=== PATIENT | male | born 1935 | race Caucasian/White ===

== ENCOUNTER 2021-06-21 10:34 | Emergency (ER) | payer MEDICARE, OTHER, SELFPAY ==
[2021-06-21 10:40] VITALS: BP 165/74; PULSE 56; RESP 14; TEMP 36.5; O2SAT 98; BMI 26.0
--- NOTE | 2021-06-21 10:44 | DI.RAD.S_ITS ---
PROCEDURE: XR FINGER LT MIN 2V INDICATIONS: large rock fell on pts finger TECHNIQUE: AP hand, 2 views of the 3rd finger(s) acquired. COMPARISON: None. FINDINGS: Bones: No fractures or dislocations. No suspicious bony lesions. Soft tissues: No suspicious soft tissue calcifications. 3rd digit soft tissue edema is present. IMPRESSION: No visualized acute fracture or dislocation. However, if clinical concern and/or pain persist, short interval imaging followup in 7-10 days is recommended, as occult injury cannot be definitively excluded. Dictated by: Mariana Elizondo M.D. on 06/21/2021 at 11:13 Approved by: Mariana Elizondo M.D. on 06/21/2021 at 11:16
--- NOTE | 2021-06-21 11:31 | PC.NURSE ---
Patient states he is building a rock wall at his house. Last week one of the rocks (large, heavy rock) slid off the pile and landed on top of patient's left hand - middle finger. Initially the injury was not painful enough to bring the patient to the ED but over the past 3-4 days the pain and swelling has been increasing substantially. The 3rd digit on left hand is very swollen, unable to bend, pain 10/10 on movement. Patient states overall health is very good and denies other signs/symptoms.
--- NOTE | 2021-06-21 11:36 | ED.GENADULT ---
HPI - General Adult General Chief complaint: Extremity Injury, Upper Stated complaint: injury to left hand middle finger Time Seen by Provider: 06/21/21 10:37 Source: patient Mode of arrival: Ambulatory Limitations: no limitations History of Present Illness HPI narrative: patient is an 86-year-old male who is here for evaluation of an injury he sustained to his left middle finger. He states that a couple days ago he smashed it while he was working with some rocks outside. He stated that he did sustain a cut to the back of his middle finger. Since that time he has had swelling and discomfort over the area. He was concerned about infection and potential fracture. No prior injuries. Related Data Previous Rx's Medication Instructions Recorded cephalexin 500 mg capsule 500 mg PO QID 7 Days #28 cap 06/21/21 Allergies Allergy/AdvReac Type Severity Reaction Status Date / Time No Known Drug Allergies Allergy Verified 06/21/21 10:45 Review of Systems Constitutional Constitutional: Denies fever(s) Musculoskeletal Musculoskeletal: Reports system reviewed and no additional complaints, except as documented and Reports as per HPI Integumentary/Breasts Skin/Breast: Reports system reviewed and no additional complaints, except as documented and Reports as per HPI Neurologic Neurologic: Reports system reviewed and no additional complaints, except as documented Hematologic/Lymphatic On Anticoagulants: No Patient History Medical History Hypertension Social History Smoking Status: Former smoker Smoking Status: Former smoker alcohol intake frequency: a few times a week Substance Use Type: does not use Exam Initial Vital Signs Initial Vital Signs: Vital Signs Temperature 97.7 F 06/21/21 10:40 Pulse Rate 56 L 06/21/21 10:40 Respiratory Rate 14 06/21/21 10:40 Blood Pressure 165/74 H 06/21/21 10:40 Pulse Oximetry 98 06/21/21 10:40 Const General: cooperative, healthy appearing and comfortable [facility] Head: normal to inspection and normocephalic Cardio Pulses: radial pulses present on the left Skin Other: patient does have a 1 cm abrasion/laceration on the dorsum of the left middle finger just proximal to the nail. The nail is not involved. There was no bleeding. Does have a small amount of serosanguineous drainage. There is some surrounding erythema. Neuro Sensory Exam: no sensory deficits noted Extrem Other: Circumferential swelling to the left middle finger. There is some redness on the dorsum the area. He does not have any tenderness along the flexor tendons. No tenderness along the MCP joint or PIP joint. Most tenderness is along the dorsum of the Middle finger along the D IP joint. Course Orders Ordered: ED Orders 06/21/21 10:44 XR finger LT min 2V Stat Vital Signs Vital signs: Vital Signs - 8 hr 06/21/21 10:40 Temperature 97.7 F Pulse Rate 56 L Respiratory Rate 14 Blood Pressure 165/74 H Pulse Oximetry 98 Medical Decision Making Imaging Data Extremity x-ray #1: Radiologist's Impression: [address] [id number] ReportSigned Patient: Sukhi Mathews JMR#: [id number]: 7Acct:[id number]/Sex: 86 / MDate of Service: 06/21/21Loc: EDAccession Number: [id number] Procedure: XR finger LT min 2V Ordering Provider: Cruz Melissa D.O. PROCEDURE: XR FINGER LT MIN 2V INDICATIONS: large rock fell on pts finger TECHNIQUE: AP hand, 2 views of the 3rd finger(s) acquired. COMPARISON: None. FINDINGS: Bones: No fractures or dislocations. No suspicious bony lesions. Soft tissues: No suspicious soft tissue calcifications. 3rd digit soft tissue edema is present. IMPRESSION: No visualized acute fracture or dislocation. However, if clinical concern and/or pain persist, short interval imaging followup in 7-10 days is recommended, as occult injury cannot be definitively excluded. Dictated by: Mariana Elizondo M.D. on 06/21/2021 at 11:13 Approved by: Mariana Elizondo M.D. on 06/21/2021 at 11:16 [facility] Narrative Medical decision making narrative: There are no fractures noted on the x-rays. There is a small skin abrasion on the back of the middle finger. because of the nature of the injury will treat him for antibiotics. No indication for orthopedic consultation today. Low suspicion for flexor tenosynovitis. Patient given return precautions. He expressed understanding and agreement. Discharge Plan Departure Patient Disposition: Home Clinical Impression: Cellulitis, Abrasion of skin Instructions: Cellulitis Activity Restrictions/Additional Instructions: due to the nature of the injury we will treat you with antibiotics. If symptoms are not improving over the next couple days you do need to contact her primary doctor for follow-up. Return to the emergency for any new worsening symptoms. Prescriptions: New cephalexin 500 mg capsule 500 mg PO QID 7 Days Qty: 28 RF: 0 Referrals: Umer Jimenez MD [Primary Care Provider] -
== END 2021-06-21 11:59 | disposition home or self-care (01) ==
PROVIDERS: Emergency Provider Emergency Medicine; Family Provider Registered Nurse; PCP Registered Nurse
DX: L03.012 Cellulitis of left finger (principal); S60.413A Abrasion of left middle finger, initial encounter; W23.0XXA Caught, crushed, jammed, or pinched between moving objects, initial encounter
CPT/HCPCS: 73140; 99283

== ENCOUNTER 2021-07-11 14:24 | Emergency (ER) | payer MEDICARE, OTHER, SELFPAY ==
[2021-07-11 14:37] VITALS: BP 155/73; PULSE 77; RESP 18; TEMP 36.5; O2SAT 97
--- NOTE | 2021-07-16 20:51 | ED.SKABFB ---
HPI - Skin/Abscess/Foreign Bdy <RALEIGH Pichardo Last Filed: 07/16/21 20:54> General Chief complaint: Skin/Abscess/Foreign Body Stated complaint: Poss infection in finger Time Seen by Provider: 07/11/21 14:43 Source: patient Mode of arrival: Ambulatory Related Data Previous Rx's Medication Instructions Recorded cephalexin 500 mg capsule 500 mg PO TID 7 Days #21 cap 07/13/21 Allergies Allergy/AdvReac Type Severity Reaction Status Date / Time No Known Drug Allergies Allergy Verified 07/13/21 09:15 Patient History <RALEIGH Pichardo Last Filed: 07/16/21 20:54> Medical History Hypertension Social History Smoking Status: Former smoker Smoking Status: Former smoker alcohol intake frequency: holidays/special occasions only Substance Use Type: does not use Exam <RALEIGH Pichardo Last Filed: 07/16/21 20:54> Initial Vital Signs Initial Vital Signs: Vital Signs Temperature 97.7 F 07/11/21 14:37 Pulse Rate 77 07/11/21 14:37 Respiratory Rate 18 07/11/21 14:37 Blood Pressure 155/73 H 07/11/21 14:37 Pulse Oximetry 97 07/11/21 14:37 <DO Tirso Mcdowell Last Filed: 07/18/21 07:07> Initial Vital Signs Initial Vital Signs: Vital Signs Temperature 97.7 F 07/11/21 14:37 Pulse Rate 77 07/11/21 14:37 Respiratory Rate 18 07/11/21 14:37 Blood Pressure 155/73 H 07/11/21 14:37 Pulse Oximetry 97 07/11/21 14:37 Discharge Plan Departure Patient Disposition: Left Against Medical Advice Clinical Impression: Patient left care setting after treatment was declined Activity Restrictions/Additional Instructions: Patient left the emergency department prior to being seen and obtaining diagnostic testing. Prescriptions: No Action cephalexin 500 mg capsule 500 mg PO TID 7 Days Qty: 21 RF: 0 Stand Alone Forms: Against Medical Advice <DO Tirso Mcdowell Last Filed: 07/18/21 07:07> Cosign ED Attending Cosignature Attestation: Dr Melissa Co-Sign Statement: I was available for consultation during this patient's emergency department visit. This chart is signed by myself for administrative purposes only. I did not have direct contact with this patient during this visit. They were seen independently by the APC.
== END 2021-07-11 15:56 | disposition left against medical advice (07) ==
PROVIDERS: Emergency Provider Student in an Organized Health Care Education/Training Program; Family Provider Registered Nurse; PCP Registered Nurse
CPT/HCPCS: 99281

== ENCOUNTER 2021-07-13 09:08 | Emergency (ER) | payer MEDICARE, OTHER, SELFPAY ==
[2021-07-13 09:12] VITALS: BP 166/81; PULSE 58; RESP 13; TEMP 36.4; O2SAT 97; BMI 24.5
--- NOTE | 2021-07-13 09:19 | PC.NURSE ---
Pt has redness,swelling and pain on left middle digit
--- NOTE | 2021-07-13 10:19 | DI.RAD.S_ITS ---
PROCEDURE: XR FINGER LT MIN 2V INDICATIONS: injury 06/21, still swollen TECHNIQUE: AP hand, 2 views of the 3rd finger(s) acquired. COMPARISON: [facility], , XR FINGER LT MIN 2V, 06/21/2021, 10:45. FINDINGS: Bones: No fractures or dislocations. Osteoarthritic changes are noted throughout left hand and wrist joints. Subtle radiolucency over radial aspect of 3rd MCP joint are seen which could represent erosion secondary to inflammatory arthropathy suggest clinical correlation. at No suspicious bony lesions. Soft tissues: No suspicious soft tissue calcifications. IMPRESSION: No evidence of 2nd finger fracture or dislocation. Questionable erosion involving radial aspect of 3rd MCP joint, suggest clinical correlation. Mild finger soft tissue swelling. 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 Dictated by: Thai Eugene M.D. on 07/13/2021 at 10:42 Approved by: Thai Eugene M.D. on 07/13/2021 at 10:50
--- NOTE | 2021-07-13 10:21 | ED.SKABFB ---
HPI - Skin/Abscess/Foreign Bdy General Chief complaint: Skin/Abscess/Foreign Body Stated complaint: Left finger infection Time Seen by Provider: 07/13/21 09:28 Source: patient Mode of arrival: Ambulatory Limitations: no limitations History of Present Illness HPI narrative: 86-year-old gentleman with an initial left middle finger injury on June 21 consisting of of [place] landing on the finger comes in complaining of continued swelling and tenderness. Initial x-ray did not show bony injury. He was placed on antibiotics for 1 week, completed these almost 2 weeks ago and did note that the drainage over the DIP dorsal surface resolved. He continues to have swelling in fullness from the PIP distally, he is unable to bend the D IP due to swelling. He states that the finger itself is not sore on the palmar surface at all. yeast tender on the dorsal surface just proximal to the nail bed if it is bumped. He has no lymphangitis spread, no fevers no recent drainage. He is concerned that it simply does not seem to be improving. Related Data Previous Rx's Medication Instructions Recorded cephalexin 500 mg capsule 500 mg PO TID 7 Days #21 cap 07/13/21 Allergies Allergy/AdvReac Type Severity Reaction Status Date / Time No Known Drug Allergies Allergy Verified 07/13/21 09:15 Review of Systems Review of Systems Narrative: Pertinent positive and negative findings as per HPI Remainder of review of systems is otherwise unremarkable for Constitutional: Fevers, chills, weakness ENT: No sore throat, neck pain, ear pain CV: Chest pain, palpitations, Respiratory: Cough, wheeze, dyspnea GI: Nausea, vomiting, diarrhea, Patient History Medical History Hypertension Social History Smoking Status: Former smoker Smoking Status: Former smoker alcohol intake frequency: holidays/special occasions only Substance Use Type: does not use Exam Narrative Exam Narrative: General: Alert appropriate in no acute distress Respiratory: Able to speak in full sentences, no obvious respiratory distress Skin: No obvious rashes, warm and dry Neurologic: Grossly intact no obvious asymmetries or abnormalities Psych: appropriate insight and affect, cooperative Extremity: Left hand, left middle finger uniformly swollen from the PIP to the tip of the finger. No specific fluctuance. Due to the swelling he is unable to bend the finger at the PIP joint but it does not appear to have significant tendon injury. Initial Vital Signs Initial Vital Signs: Vital Signs Temperature 97.6 F 07/13/21 09:12 Pulse Rate 58 L 07/13/21 09:12 Respiratory Rate 13 07/13/21 09:12 Blood Pressure 166/81 H 07/13/21 09:12 Pulse Oximetry 97 07/13/21 09:12 Course Orders Ordered: ED Orders 07/13/21 10:19 XR finger LT min 2V Stat Vital Signs Vital signs: Vital Signs - 8 hr 07/13/21 09:12 Temperature 97.6 F Pulse Rate 58 L Respiratory Rate 13 Blood Pressure 166/81 H Pulse Oximetry 97 MDM - Skin/Abscess/Foreign Bdy Imaging Data X-ray finger: Radiologist's Impression: FINDINGS: Bones: No fractures or dislocations. Osteoarthritic changes are noted throughout left hand and wrist joints. Subtle radiolucency over radial aspect of 3rd MCP joint are seen which could represent erosion secondary to inflammatory arthropathy suggest clinical correlation. at No suspicious bony lesions. Soft tissues: No suspicious soft tissue calcifications. IMPRESSION: No evidence of 2nd finger fracture or dislocation. Questionable erosion involving radial aspect of 3rd MCP joint, suggest clinical correlation. Mild finger soft tissue swelling. 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 Dictated by: Thai Eugene M.D. on 07/13/2021 at 10:42 MDM Narrative Medical decision making narrative: 86-year-old gentleman with a contusion injury to the left middle finger follow-up infection somewhat improved after antibiotics still consistently swollen and tender. Will repeat x-rays, anticipate another course of antibiotics and referral to Dr. Oh, hand air traffic control specialist as an outpatient. Discharge Plan Departure Patient Disposition: Home Clinical Impression: Crushing injury of finger of left hand Instructions: DI for Cellulitis -- Adult Activity Restrictions/Additional Instructions: Thank you for coming in today I am concerned that this finger injury does not seem to be healing completely. The x-ray today suggests that there may be some erosion over the end joint (where it is most swollen and most tender). I am going to put you on Keflex, on antibiotic, for another week but you need to follow-up with a hand warehouse specialist to see what the next steps and diagnosis and treatment will be to make sure that this heals as completely as it can Please contact Dr. Oh office to schedule an emergency department follow-up appointment as soon is he has a space available Prescriptions: New cephalexin 500 mg capsule 500 mg PO TID 7 Days Qty: 21 RF: 0 Referrals: Umer Jimenez MD [Primary Care Provider] - Frankie Oh MD [Physician] -
[2021-07-13 11:33] VITALS: BP 156/88; PULSE 54; RESP 16; O2SAT 99
== END 2021-07-13 11:34 | disposition home or self-care (01) ==
PROVIDERS: Emergency Provider Emergency Medicine; Family Provider Registered Nurse; PCP Registered Nurse
DX: S67.193A Crushing injury of left middle finger, initial encounter (principal); W23.0XXA Caught, crushed, jammed, or pinched between moving objects, initial encounter
CPT/HCPCS: 73140; 99281; 99283

== ENCOUNTER 2023-10-09 15:07 | Emergency (ER) | payer MEDICARE, OTHER, SELFPAY ==
[2023-10-09] VITALS (10 sets, daily range): BP systolic 134–158; BP diastolic 65–79; PULSE 55–85; RESP 18; TEMP 36.7; O2SAT 92–97; BMI 26.6
[2023-10-09 15:56] LABS: Add Manual Diff / Slide Review NO; Basophils Absolute Auto 0 /uL (0-100); Basophils Percent Auto 0.3 % (0-2); Eosinophils Absolute Auto 100 /uL (0-450); Hematocrit 43.4 % (41-53); Hemoglobin 14.6 g/dL (13.5-17.5); Lymphocytes Absolute Auto 500 /uL (1100-4500); Lymphocytes Percent Auto 7.6 % (25-40); Mean Corpuscular HGB Conc 33.6 % (30-36); Mean Corpuscular Hemoglobin 32.5 PG (26-34); Mean Corpuscular Volume 96.8 fL (80-100); Monocytes Absolute Auto 700 /uL (0-900); Monocytes Percent Auto 9.7 % (3-14); Neutrophils Absolute Auto 5700 /uL (1500-7000); Neutrophils Percent Auto 81.4 % (50-75); Platelet Count 121 X10^3/uL (150-400); Red Blood Cell Count 4.49 X10^6/uL (4.5-5.9); Red Cell Distribution Width 13.4 % (11.6-14.8); White Blood Cell Count 6.9 X10^3/uL (4.5-11.0)
[2023-10-09 16:05] LABS: Alanine Aminotransferase 20 IU/L (<50); Albumin 3.9 g/dL (3.5-5.0); Albumin Globulin Ratio 1.2 (1.0-2.8); Alkaline Phosphatase 66 U/L (38-126); Aspartate Aminotransferase 32 IU/L (17-59); BUN Creatinine Ratio 29.4 (6-22); Bilirubin Total 1.3 mg/dL (0.2-1.3); Blood Urea Nitrogen 25 mg/dL (9-20); Calcium 9.4 mg/dL (8.4-10.2); Carbon Dioxide 23 mmol/L (22-32); Chloride 102 mmol/L (98-107); Estimated Glomerular Filt Rate > 60 mL/min (>60); Globulin 3.3 g/dL (1.7-4.1); Glucose 99 mg/dL (80-110); HEMOLYSIS < 15 (0-50); Lipase 62 U/L (23-300); Potassium 4.2 mmol/L (3.4-5.1); Sodium 138 mmol/L (137-145); Total Protein 7.2 g/dL (6.3-8.2)
--- NOTE | 2023-10-09 17:58 | DI.CT.S_ITS ---
PROCEDURE: CT ABDOMEN PELVIS W CON INDICATIONS: midepigastric abd pain x1 wk TECHNIQUE: After the administration of intravenous contrast, axial sections acquired from the lung bases to the pubic symphysis. Coronal and sagittal reformats were performed. For radiation dose reduction, the following was used: automated exposure control, adjustment of mA and/or kV according to patient size. COMPARISON: None. FINDINGS: Image quality: Mild areas of consolidation can be seen dependently at the lung bases, with mild apparent fibrotic change. Advanced triple vessel coronary artery calcification can be seen. Lower Chest: No significant findings. ABDOMEN: Liver: No solid mass. Gallbladder: A layering gallstone can be seen within the gallbladder. No additional CT findings of cholecystitis are seen. Biliary ducts: No biliary dilation. Pancreas: No ductal dilation. Spleen: Size is within normal limits. A likely cyst can be seen along the medial aspect of the spleen, measuring 2 cm. Adrenal Glands: No adrenal nodules. Kidneys and Ureters: No hydronephrosis. No solid mass. No complex renal cystic lesion which requires follow up. There is a nonobstructing right-sided kidney stone superiorly measuring 3 mm, as on series 2, image 35. Within the left kidney, there is a nonobstructing 3 mm stone, as on series 2, image 42. Stomach and Bowel: The cecum is high-riding in this patient. No cecal volvulus is seen. No appendix (either normal or abnormal) is identified on this study. No focal right lower quadrant inflammatory change is seen. No dilated loops of small bowel can be seen. No significant colonic abnormality is seen. The stomach is decompressed at the time of this study, limiting its evaluation. Peritoneum: No abnormal intraperitoneal fluid. No free air. A focus of calcification can be seen involving the right upper quadrant peritoneal cavity, as on series 2, image 32. Additional peritoneal calcifications can be seen just to the left of the midline on series 2, image 40 as well as on the left side on series 2, image 41. Ventral Wall: No hernia. Abdominal Nodes: No retroperitoneal or mesenteric adenopathy by size criteria. Vessels: Aorta and inferior vena cava are normal in size. Atherosclerotic calcification is noted. PELVIS: Pelvic Organs: Prior prostatectomy change can be seen, with pelvic clips. Bladder: Unremarkable. Pelvic Nodes: No enlarged lymph nodes. Miscellaneous: No inguinal hernias are seen. Bones: No aggressive osseous abnormality. Degenerative changes are seen throughout, which are worst involving the lower lumbar spine. Mild dextroconvex scoliotic curvature is seen. IMPRESSION: No imaging explanation is found for this patient's presenting symptoms. No appendix (either normal or abnormal) is identified on this study. Within the lung bases, there are mild areas of consolidation, with apparent fibrosis. Although nonspecific, please consider aspiration in a patient of this age. Focal areas of peritoneal calcification can be seen, which have a benign appearance. Please correlate with prior injury. Additional findings: Advanced triple-vessel coronary artery calcification Gallstone Splenic cyst Nonobstructing bilateral kidney stones. Focal lower lumbar spine degenerative change Prostatectomy Dictated by: Fabricio Prajapati M.D. on 10/09/2023 at 17:23 Approved by: Fabricio Prajapati M.D. on 10/09/2023 at 17:30
--- NOTE | 2023-10-09 17:58 | ED.ABDPAIN ---
HPI - Abdominal Pain General Chief Complaint: Abdominal Pain Stated Complaint: low abdominal pain, cognitive changes and confusio Time Seen by Provider: 10/09/23 17:44 Source: patient Mode of arrival: Wheelchair History of Present Illness HPI narrative: 88-year-old male presents by private vehicle from home for 2-3 days of midepigastric abdominal burning that he feels when he lays down on his stomach. Triage note reports disorientation, however both patient and his at bedside deny this. Patient does have difficulty describing his symptoms but repeatedly points to the midepigastric region. Denies nausea or vomiting, constipation, urinary frequency. Patient was initially seen at the walk-in clinic where urinalysis was unremarkable and he was referred to the ER for additional evaluation. Related Data Home Medications Medication Instructions Recorded Confirmed acetaminophen 500 mg capsule 500 mg PO Q6H PRN 10/09/23 10/09/23 aspirin 81 mg tablet,delayed 81 mg PO DAILY 10/09/23 10/09/23 release atorvastatin 10 mg tablet 10 mg PO BEDTIME 10/09/23 10/09/23 celecoxib 200 mg capsule 200 mg PO DAILY 10/09/23 10/09/23 losartan 100 mg tablet 100 mg PO DAILY 10/09/23 10/09/23 omeprazole 20 mg capsule,delayed 20 mg PO DAILY 10/09/23 10/09/23 release oxybutynin chloride 5 mg tablet 5 mg PO DAILY 10/09/23 10/09/23 pregabalin 150 mg capsule 150 mg PO DAILY 10/09/23 10/09/23 Previous Rx's Medication Instructions Recorded famotidine 20 mg tablet (Pepcid) 20 mg PO BEDTIME #14 tabs 10/09/23 sucralfate 1 gram tablet (Carafate) 1 g PO QAC #30 tabs 10/09/23 Allergies Allergy/AdvReac Type Severity Reaction Status Date / Time No Known Drug Allergies Allergy Verified 10/09/23 14:45 Review of Systems Review of Systems Narrative: Negative except as noted above Patient History Medical History Hypertension Social History Smoking Status: Former smoker Smoking Status: Former smoker alcohol intake frequency: holidays/special occasions only Substance Use Type: does not use Exam Initial Vital Signs Initial Vital Signs: Vital Signs Temperature 98.1 F 10/09/23 15:10 Pulse Rate 78 10/09/23 15:10 Respiratory Rate 18 10/09/23 15:10 Blood Pressure 141/74 H 10/09/23 15:10 Pulse Oximetry 96 10/09/23 15:10 Oxygen Delivery Method Room Air 10/09/23 15:10 Const: Awake, alert, no acute distress, nontoxic appearing Cardiac: regular rate, regular rhythm RESP: unlabored, clear bilaterally, no wheezing GI: Atraumatic, soft, nontender, nondistended, no rebound, no guarding Skin: Warm, Dry, intact, no rashes Neuro: AO x3, CN II-XII grossly intact, moves all extremities Psych: Appropriate for condition Course Course Course Narrative: Nontoxic appearing patient with several days of reported symptoms. Abdomen is soft, no reproducible tenderness to light or deep palpation. Based on patient's age order labs and CT imaging. Urinalysis obtained earlier today reviewed, no acute abnormalities identified. Orders Ordered: ED Orders 10/09/23 15:20 Complete Blood Count AUTO DIFF Stat Comprehensive Metabolic Panel Stat Lipase Stat EKG-12 Lead Stat 10/09/23 17:58 CT abdomen pelvis w con Stat Discontinued Medications Ondansetron HCl (Ondansetron 4 Mg Odt) 4 mg PO NOW PRN PRN Reason: Nausea And Vomiting Ondansetron HCl (Ondansetron 4 Mg/2 Ml Inj) 4 mg IV NOW PRN PRN Reason: Nausea And Vomiting Reevaluation(s) Reevaluation #1: Laboratory work is reviewed, no significant abnormalities identified. Pending CT imaging. Nursing reports that patient desaturates while he sleeps, he does state that he has sleep apnea. Reevaluation #2: CT imaging negative for acute pathology. Patient resting comfortably in bed. Repeat abdominal exam soft and benign. Patient informed of all lab and imaging findings, we will trial a short course of antacids and Carafate. Patient strongly advised to follow up with his primary care physician for further investigation of his symptoms. Vital Signs Vital signs: Vital Signs - 8 hr 10/09/23 16:14 10/09/23 16:15 10/09/23 16:15 Pulse Rate 70 85 Blood Pressure 134/78 Pulse Oximetry 92 93 10/09/23 16:30 10/09/23 16:30 10/09/23 17:00 Pulse Rate 67 65 Blood Pressure 153/79 H Pulse Oximetry 92 10/09/23 17:00 10/09/23 17:30 10/09/23 17:30 Pulse Rate 70 Blood Pressure 158/76 H 137/71 Pulse Oximetry 97 10/09/23 18:00 10/09/23 18:01 10/09/23 18:01 Pulse Rate 83 81 Blood Pressure 156/79 H Pulse Oximetry 97 97 10/09/23 18:30 10/09/23 18:31 10/09/23 18:31 Pulse Rate 55 L 56 L Blood Pressure 143/65 H Pulse Oximetry 95 96 MDM - Abdominal Pain Differential Diagnosis Differential diagnosis: Likely abdominal pain, constipation and diverticulitis Lab Data 10/09/23 15:20 10/09/23 15:20 Labs: Lab Results 10/09/23 Range/Units 15:20 WBC 6.9 (4.5-11.0) X10^3/uL RBC 4.49 L (4.5-5.9) X10^6/uL Hgb 14.6 (13.5-17.5) g/dL Hct 43.4 (41-53) % MCV 96.8 (80-100) fL MCH 32.5 (26-34) PG MCHC 33.6 (30-36) % RDW 13.4 (11.6-14.8) % Plt Count 121 L (150-400) X10^3/uL Neut % (Auto) 81.4 H (50-75) % Lymph % (Auto) 7.6 L (25-40) % [place] % (Auto) 9.7 (3-14) % Eos % (Auto) 1.0 L (2-4) % Baso % (Auto) 0.3 (0-2) % Neut # (Auto) 5700 (5347-5195) /uL Lymph # (Auto) 500 L (6093-3675) /uL [place] # (Auto) 700 (0-900) /uL Eos # (Auto) 100 (0-450) /uL Baso # (Auto) 0 (0-100) /uL Sodium 138 (137-145) mmol/L Potassium 4.2 (3.4-5.1) mmol/L Chloride 102 (98-107) mmol/L Carbon Dioxide 23 (22-32) mmol/L BUN 25 H (9-20) mg/dL Creatinine 0.85 (0.66-1.25) mg/dL Estimated GFR > 60 (>60) mL/min BUN/Creatinine Ratio 29.4 H (6-22) Glucose 99 (80-110) mg/dL Calcium 9.4 (8.4-10.2) mg/dL Total Bilirubin 1.3 (0.2-1.3) mg/dL AST 32 (17-59) IU/L ALT 20 (<50) IU/L Alkaline Phosphatase 66 (38-126) U/L Total Protein 7.2 (6.3-8.2) g/dL Albumin 3.9 (3.5-5.0) g/dL Globulin 3.3 (1.7-4.1) g/dL Albumin/Globulin Ratio 1.2 (1.0-2.8) Lipase 62 (23-300) U/L ECG Data Interpretation: Normal sinus rhythm, rate 65 beats per minute. Normal MN. No ST T wave changes, no STEMI Discharge Plan Departure Patient Disposition: Home Clinical Impression: Abdominal pain Instructions: DI for Abdominal Pain-Adult Prescriptions: New famotidine [Pepcid] 20 mg tablet 20 mg PO BEDTIME Qty: 14 0RF sucralfate [Carafate] 1 gram tablet 1 g PO QAC Qty: 30 0RF No Action losartan 100 mg tablet 100 mg PO DAILY atorvastatin 10 mg tablet 10 mg PO BEDTIME pregabalin 150 mg capsule 150 mg PO DAILY aspirin 81 mg tablet,delayed release (DR/EC) 81 mg PO DAILY celecoxib 200 mg capsule 200 mg PO DAILY acetaminophen 500 mg capsule 500 mg PO Q6H PRN omeprazole 20 mg capsule,delayed release(DR/EC) 20 mg PO DAILY oxybutynin chloride 5 mg tablet 5 mg PO DAILY Referrals: Umer Jimenez MD [Primary Care Provider] - Stand Alone Forms: Patient Portal/API
== END 2023-10-09 18:54 | disposition home or self-care (01) ==
PROVIDERS: Emergency Medicine; Emergency Provider Emergency Medicine; Family Provider Registered Nurse; PCP Registered Nurse
DX: R10.13 Epigastric pain (principal); R10.30 Lower abdominal pain, unspecified
CPT/HCPCS: 36415; 74177; 80053; 83690; 85025; 87086; 93005; 93010; 99284

== ENCOUNTER → 2023-10-09 15:16 | Outpatient (CLI) | payer MEDICARE, OTHER, SELFPAY | PROVIDERS: Family Provider Registered Nurse; PCP Registered Nurse; Visit Provider Nurse Practitioner Family | DX: R10.30 Lower abdominal pain, unspecified (principal) | CPT/HCPCS: 87086 ==